=== PATIENT | female | born 1995 | race Caucasian/White ===

== ENCOUNTER 2021-03-31 07:49 | Day surgery (SDC) | payer OTHER ==
[~2021-03-31] VITALS: Ht 162.6 cm; Wt 63.6 kg
[2021-03-31 08:00] VITALS: BP 127/86
--- NOTE | 2021-03-31 08:00 | NUR ---
PATIENT TO ROOM AMBULATORY ADMISSION ASSESSMENT COMPLETED AT THIS TIME. IV ESTABLISHED. LABS SENT FOR REFERENCE. CONSENT OBTAINED. ORIENTED PATIENT TO ROOM AND UNIT. CALL LIGHT INR EACH. WILL CONTINUE TO MONITOR.
--- NOTE | 2021-03-31 09:16 | NUR ---
DR ROSAS AT BEDSIDE AT THIS TIME.
[2021-03-31 10:02] LABS: HEMATOCRIT 38.3 % (37.0-47.0); HEMOGLOBIN 12.7 g/dl (12.0-16.0); IMMATURE GRANULOCYTES 0.1 % (0.0-5.0); MEAN CELL VOLUME 90.5 fL CALC (80.0-100.0); MEAN CORPUSCULAR HGB CONC 33.2 g/dL CAL (32.0-36.0); NEUT# 5.54 thou/uL (2.00-7.15); RED BLOOD COUNT 4.23 mill/uL (4.20-5.60); RED CELL DISTRI WIDTH 12.4 % (11.5-15.5)
[2021-03-31 10:25] LABS: ALKALINE PHOSPHATASE 68 u/l (38-126); ANION GAP 7 (6-22 (CALC)); BILIRUBIN, TOTAL 0.7 mg/dL (0.0-1.4); BUN 11 mg/dL (7-17); BUN/CREATININE RATIO 15 (12-20 (CALC)); CARBON DIOXIDE 27 mmol/l (22-30); CHLORIDE 109 mmol/l (95-108); CREATININE 0.7 mg/dL (0.5-1.0); GFR > 60 ML/MIN (>=60 (CALC)); GFR FOR AFR.AMER. > 60 ML/MIN (>=60 (CALC)); POTASSIUM 4.2 mmol/l (3.5-5.1); SGOT/AST 29 u/l (14-36); SODIUM 139 mmol/l (137-146); TOTAL PROTEIN 7.8 g/dL (6.3-8.2)
[2021-03-31] MEDS ORDERED: NALTREXONE50 MG PO (16:53)
[2021-03-31] MEDS ORDERED: CLONIDINE0.1 MG PO (16:54)
[2021-03-31] MEDS ORDERED: KLONOPIN0.5 MG PO (16:54)
--- NOTE | 2021-03-31 17:54 | NUR ---
PT RETURNED RECENTLY FROM ANR PROCEDURE, SEEN DROWSY. PT NOT RESPONSIVE TO VOICE AT THIS TIME, ALLOWED TO SLEEP. NO DISTRESS NOTED.
[2021-03-31 18:29] VITALS: BP 121/59
--- NOTE | 2021-03-31 19:34 | NUR ---
REPORT RECEIVED FROM ANTONINO CORREA. PT RESTING IN BED SEMI FOWLERS WITH EYES CLOSED AND NO SIGNS OF DISTRESS. REPOSITIONING HERSELF IN BED; YAWNING AND HAS OCCASIONAL LOOSE COUGH WHILE SLEEPING. RESPIRATIONS EVEN AND UNLABORED ON OXYGEN 2L VIA NC. #22 IV TO RFA WITH LR INFUSING AT 100 ML/HR. #18 IV TO LEFT ARM SALINE LOCKED. SAFETY MEASURES IN PLACE INCLUDING BED ALARM. CALL LIGHT WITHIN REACH.
[2021-03-31 23:07] VITALS: BP 121/76
--- NOTE | 2021-03-31 23:19 | NUR ---
MEDICATIONS GIVEN INCLUDING ZOFRAN FOR NAUSEA; WARM BLANKET PROVIDED. IV FLUIDS PAUSED FOR NOW. OXYGEN REMOVED; PT NOW ON ROOM AIR; SPO2 99%. NO OTHER REQUESTS AT THIS TIME.
[2021-04-01 04:16] VITALS: BP 98/55
--- NOTE | 2021-04-01 04:23 | NUR ---
LAB AT BEDSIDE. AM MEDICATIONS GIVEN.
[2021-04-01 05:56] LABS: ALBUMIN 3.6 g/dL (3.2-5.0); ALKALINE PHOSPHATASE 66 u/l (38-126); ANION GAP 11 (6-22 (CALC)); BILIRUBIN, TOTAL 0.6 mg/dL (0.0-1.4); BUN 7 mg/dL (7-17); BUN/CREATININE RATIO 11 (12-20 (CALC)); CARBON DIOXIDE 24 mmol/l (22-30); CHLORIDE 108 mmol/l (95-108); CREATININE 0.6 mg/dL (0.5-1.0); GFR > 60 ML/MIN (>=60 (CALC)); GFR FOR AFR.AMER. > 60 ML/MIN (>=60 (CALC)); MAGNESIUM 2.2 mg/dL (1.6-2.3); SGOT/AST 25 u/l (14-36); SODIUM 139 mmol/l (137-146); TOTAL PROTEIN 7.3 g/dL (6.3-8.2)
--- NOTE | 2021-04-01 06:50 | NUR ---
REPORT RECEIVED FROM ANTONINO DUMONT. PATIENT IS SLEEPING IN BED WITH NO DISTRESS NOTED. CALL LIGHT IN REACH.
[2021-04-01 08:29] VITALS: BP 99/54
--- NOTE | 2021-04-01 08:29 | NUR ---
PATIENT IS VERY DROWSY. RESPS EVEN AND UNLABORED. WAS ABLE TO OBTAIN VS BUT NOT A FULL ASSESSMENT AT THIS TIME. CALL LIGHT IN REACH AND BED ALARM IN PLACE.
[2021-04-01 11:10] VITALS: BP 105/67
--- NOTE | 2021-04-01 11:10 | NUR ---
PATIENT SLEEPING ON HER LEFT SIDE IN BED. PATIENT FACE SEEM DAMP. PATIENT WAS ABLE TO TURN TO HER BACK AND VS OBTAIN TEMP 98.7. ASSESSMENT DONE. PATIENT IS VERY DROWSY AND PATIENT IS ALERT TO SELF ONLY AT THIS TIME. PATIENT REFUSED JUICE AND AM MEDICATIONS STATED NO AND JUST TURN BACK TO HER LEFT SIDE. CALL LIGHT IN REACH AND BED ALARM IN PLACE.
--- NOTE | 2021-04-01 12:26 | NUR ---
TRY TO WAKE UP PATIENT FOR LUNCH AND PO MEDICATIONS BUT PATIENT CONTINUE TO SLEEP WITH NO DISTRESS NOTED. BED ALARM IN PLACE.
--- NOTE | 2021-04-01 13:29 | NUR ---
PATIENT IS DROWSY BUT PATIENT TOOK A FEW SIPS OF JUICE. PATIENT DENIES THE NEED TO VOID AT THIS TIME. PATIENT REQUEST A WARM BLANKET. PROVIDED PATIENT WITH A WARM BLANKET. PATIENT DENIES ANY OTHER NEEDS. BED ALARM IN PLACE.
--- NOTE | 2021-04-01 14:37 | NUR ---
PATIENT HAS INCONTINENCES OF URINE IN BED. PATIENT IS DROWSY. KETTLE CLEANER AND I ASSISTED PATIENT TO THE SHOWER. THEN TO THE RECLINER AND PROVIDED WARM BLANKETS. WATER PROVIDED AND PATIENT TOOK A FEW SIPS OF WATER. THEN PATIENT STATED SHE FELT NAUSEOUS. MEDICATED PATIENT WITH REGLAN. CALL LIGHT IN REACH.
--- NOTE | 2021-04-01 15:47 | NUR ---
PATIENT IS SLEEPING IN THE RECLINER WITH NO DISTRESS NOTED. CALL LIGHT IN REACH.
--- NOTE | 2021-04-01 18:00 | NUR ---
PATIENT IS SLEEPING IN BED WITH NO DISTRESS NOTED. BED ALARM IN PLACE.
[2021-04-01 19:00] VITALS: BP 100/62
--- NOTE | 2021-04-01 19:00 | NUR ---
REPORT RECEIVED FOR[facility] NURSESHARITA RN. PATIENT IS RESTING IN BED, NO NEEDS VOICED AT THIS TIME, BED ALARM ON. WILL FOLLOW UP WITH ROUNDINGS.
--- NOTE | 2021-04-01 22:54 | NUR ---
PATIENT IS RESTING IN BED, QUIETLY, NO NEEDS VOICED, BED ALARM IN PLACE, WILL FOLLOW UP WITH FREQUENTLY HOURLY ROUNDINGS.
[2021-04-01 23:13] VITALS: BP 99/66
[2021-04-02 03:25] VITALS: BP 106/62
--- NOTE | 2021-04-02 04:20 | NUR ---
MEDICATED WITH PHENERGAN IV PER ORDERS; C/O NAUSEA, NO EMESIS NOTED. BED ALARM IN PLACE, WILL FOLLOW UP WITH REASSESSMENT.
[2021-04-02 06:24] VITALS: BP 104/60
--- NOTE | 2021-04-02 06:38 | NUR ---
HELD CLONIDINE PO D/T LOW BP PER MD ORDERS.
--- NOTE | 2021-04-02 07:00 | NUR ---
RECIEVED REPORT FROM EVETTERN
[2021-04-02 08:23] VITALS: BP 113/71
--- NOTE | 2021-04-02 08:23 | NUR ---
PT RESTING IN SEMI FOWLERS. PT IS A/OX3 AND MAKING CONVERSATION. ASSESSMENT AND VITALS COMPLETED. BP 113/71, HR 60, O2 100% ON ROOM AIR. RESPIRATIONS ARE EVEN AND UNLABORED ON ROOM AIR. LUNG SOUNDS CLEAR. HEART RHYTHM NORMAL. BOWEL SOUNDS ARE ACTIVE. #20G LH DISLODGED, CATH INTACT. #18G RW FLUSHED, SITE APPEARS HEALTHY AND PATENT. SKIN INTACT. BREAKFAST PROVIDED. PT DENIES OF ANY PAINS OR DISCOMFORTS AT THIS TIME. ALL SAFTEY PRECAUTIONS ARE IN PLACE WITH CALL LIGHT IN REACH. WILL CONTINUE TO MONITOR.
--- NOTE | 2021-04-02 08:24 | NUR ---
PT EDUCATED ON DC INSTRUCTIONS AND NEW MEDICATIONS. PT VERBALIZED UNDERSTANDING. #18G RW REMOVED WITH CATH STILL INTACT. TRANSPORTATION HERE.
--- NOTE | 2021-04-02 09:25 | NUR ---
Discharge instructions given. Patient verbalizes understanding of same. Discharged in stable condition via Wheelchair to Home with staff. All belongings sent with pt. PT DC HOME IN STABLE CONDITION VIA WHEELCHAIR ACCOMPAINED [facility] STAFF WITH ALL DC INSTRUCTIONS AND PERSONAL BELONGINGS.
== END 2021-04-02 09:20 | disposition home or self-care (01) | DRG 897 ==
LOC: ANR 07:49 → MS2 07:54 → ANR 15:39
PROVIDERS: ATTEND Anesthesiology
DX: F11.20 Opioid dependence, uncomplicated (principal)
CPT/HCPCS: J2354